=== PATIENT | male | born 1975 | race Caucasian/White ===

== ENCOUNTER 2019-04-24 09:33 | Outpatient (CLI) | payer BC ==
--- NOTE | 2019-04-24 11:36 | RAD ---
LEFT KNEE 2 VIEWS: HISTORY: Acute left knee pain. FINDINGS: Mild degenerative and osteoarthrosis changes left knee joint. No acute fracture or dislocation. 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 IMPRESSION: No acute fracture or dislocation. Other findings as above. POS: [facility]
== END 2019-04-24 09:34 | disposition home or self-care (01) ==
LOC: BURRAD 09:33
PROVIDERS: ATTEND Family Medicine
DX: M25.562 Pain in left knee (principal); M17.12 Unilateral primary osteoarthritis, left knee

== ENCOUNTER 2019-09-10 07:43 | Emergency (ER) | payer BC ==
[2019-09-10 08:46] LABS: Bilirubin Negative (Negative); Blood, Urine Trace (Negative); Clarity Clear (Clear); Glucose, Urine (Dipstick) Negative (Negative); Ketone, Urine Negative (Negative); Leukocyte Small (Negative); Nitrite Negative (Negative); Protein, Urine (Dipstick) Negative (Neg-Trace); Urobilinogen 0.2 mg/dL (Less than 2)
[2019-09-10 08:52] LABS: Bacteria/HPF Rare-Few HPF (None Seen); RBC/HPF 0-3 HPF (0-3); Squamous Epithelial 0-3 HPF (0-3); WBC/HPF 0-3 HPF (0-3)
[2019-09-10] MEDS ORDERED: Sulfameth/Trimethoprim DS 800-160mg TAB ONE (09:05)
[2019-09-10] MEDS ORDERED: Oxytocin 10 UNITS/ML VIAL ONE (09:05)
[2019-09-10] MEDS ORDERED: Phenazopyridine HCl 97.5 MG TABLET PO SCH (09:15)
== END 2019-09-10 09:28 | disposition home or self-care (01) ==
LOC: BURERS 07:43
DX: R30.0 Dysuria (principal); R33.9 Retention of urine, unspecified; F17.210 Nicotine dependence, cigarettes, uncomplicated
CPT/HCPCS: 81003; 81015; 87086; J2590

== ENCOUNTER 2019-09-10 17:13 | Emergency (ER) | payer BC ==
[2019-09-10 18:06] LABS: #Basophils 0.1 thou/uL (0.0-0.2); #Eosinphils 0.1 thou/uL (0.0-0.7); #Lymphocytes 1.4 thou/uL (1.20-3.40); #Monocytes 0.8 thou/uL (0.11-0.59); %Basophils 0.9 % (0.0-1.0); %Eosinophils 0.6 % (0.0-10.0); %Lymphocytes 10.4 % (21.0-51.0); %Monocytes 6.2 % (0.0-10.0); %Neutrophils 81.9 % (42.0-75.0); Hemoglobin 14.8 g/dL (14.0-18.0); Mean Corpuscular HGB CONC 30.9 g/dL (32.0-36.0); Mean Corpuscular Hemoglobin 29.6 pg (27.0-31.0); Mean Corpuscular Volume 95.9 fL (78.0-98.0); Mean Platelet Volume 9.2 fL (7.4-10.4); Platelet Count 238 thou/uL (130-400); RBC Distribution Width 12.1 % (11.5-14.5); Red Blood Cell (RBC) Count 4.99 mill/uL (4.70-6.10); White Blood Cell (WBC) Count 13.4 thou/uL (4.8-10.8)
[2019-09-10 18:22] LABS: ALT (SGPT) 32 U/L (8-55); AST (SGOT) 18 U/L (5-34); Albumin 4.5 g/dL (3.5-5.0); Alkaline Phosphatase 42 U/L (40-110); Anion Gap 14 mmol/L (10-20); BUN (Urea Nitrogen) 10 mg/dL (8.9-20.6); Bilirubin, Total 0.4 mg/dL (0.2-1.2); Calc. Creatinine Clearance 0 mL/min (70-130); Calcium 9.5 mg/dL (7.8-10.44); Carbon Dioxide 23 mmol/L (22-29); Chloride 111 mmol/L (98-107); Estimated GFR-MDRD 88; Glucose 112 mg/dL (70-105); Potassium 4.2 mmol/L (3.5-5.1); Protein, Total 7.5 g/dL (6.0-8.3); Sodium 144 mmol/L (136-145)
== END 2019-09-10 19:00 | disposition home or self-care (01) ==
LOC: BURERS 17:13
DX: N35.919 Unspecified urethral stricture, male, unspecified site (principal); R33.9 Retention of urine, unspecified; F17.210 Nicotine dependence, cigarettes, uncomplicated
CPT/HCPCS: 36415; 51703; 80053; 81003; 81015; 85025; 87086; 99283; J2590